=== PATIENT | female | born 2000 | race Caucasian/White ===

== ENCOUNTER 2020-05-14 13:09 | Emergency (ER) | payer OTHER ==
[~2020-05-14] VITALS: Ht 160 cm; Wt 72.6 kg
[2020-05-14 13:19] VITALS: Ht 160 cm; Wt 72.6 kg
[2020-05-14 14:15] LABS: UA SPECIFIC GRAVITY 1.015 (1.005-1.035); microscopic required? YES; urine erythrocyte 3+ (NEGATIVE)
[2020-05-14 14:25] LABS: AMPHETAMINE QUAL UR NONE DETECTED (See below)
[2020-05-14 14:34] LABS: BASOPHIL % 0.9 % (0.2-1.3); PLATELET COUNT 275 x10^3mcL (179-408)
[2020-05-14 16:58] VITALS: BP 115/79
== END 2020-05-14 16:58 | disposition home or self-care (01) ==
LOC: ED 13:09
PROVIDERS: Emergency Medicine
DX: O03.9 Complete or unspecified spontaneous abortion without complication (principal); O98.311 Other infections with a predominantly sexual mode of transmission complicating pregnancy, first trimester; Z3A.01 Less than 8 weeks gestation of pregnancy